=== PATIENT | female | born 1970 | race Caucasian/White ===

== ENCOUNTER → 2023-09-17 | Outpatient (CLI) | payer BC ==
[~2023-09-17] VITALS: Ht 157.5 cm; Wt 62.3 kg
[~2023-09-17] MED LIST: LIDOCAINE 1% INJ 10 ML VIAL INJ ONE
--- NOTE | 2023-09-17 14:51 | Diagnostic Imaging Report ---
Indication: Right breast mass, status post ultrasound-guided biopsy. Unilateral right 2-D cc and MLO mammography was performed after patient underwent ultrasound-guided right breast biopsy. Images demonstrate a marker clip centered within the mass in the upper outer right breast. IMPRESSION: Satisfactory marker clip placement into the mass in the upper outer right breast, status post ultrasound-guided core biopsy. Dictated by: Dictated on workstation # [id number]
--- NOTE | 2023-09-17 17:31 | Diagnostic Imaging Report ---
INDICATION: Right breast mass. PROCEDURE: The patient presents for ultrasound-guided core biopsy. The patient was brought to the sonographic suite and placed on the bed in a supine position. Ultrasound imaging of the right breast was performed to evaluate appropriate entry site. A total of 4 passes were made into the hypoechoic solid mass at the 11 o'clock location of the right breast utilizing the 14-gauge Achieve core biopsy needle. A marker clip was then deployed within the lesion. Hemostasis was obtained using manual compression. The patient tolerated the procedure well and was sent for a post procedure mammogram on dedicated mammographic equipment in satisfactory condition. IMPRESSION: Successful ultrasound-guided core biopsy of the hypoechoic mass at the 11:00 location of the right breast. Pathology results are currently pending. Dictated by: Dictated on workstation # [id number]
== END ==
LOC: RAD 10:28
PROVIDERS: ATTEND Family Medicine
DX: N63.11 Unspecified lump in the right breast, upper outer quadrant (principal)
CPT/HCPCS: 19083; 77065; A4648; G0279